=== PATIENT | female | born 1975 | race Caucasian/White ===

== ENCOUNTER 2022-01-28 12:17 | Emergency (ER) | payer BC, SELFPAY ==
[2022-01-28 12:20] VITALS: BP 155/73; PULSE 82; RESP 16; TEMP 36.5; O2SAT 100
--- NOTE | 2022-01-28 12:49 | ED.BACK ---
HPI - Back Pain/Injury General Chief Complaint: Back Pain/Injury Stated Complaint: back pain Time Seen by Provider: 01/28/22 12:23 Source: patient, family and RN notes reviewed Mode of arrival: ambulatory Limitations: no limitations History of Present Illness HPI Narrative: 46-year-old female history of degenerative disc disease presenting the emergency department for evaluation of left lower back and left buttock pain that radiates down her left hip. Patient states yesterday she woke up in the morning and was having the pain. Patient denies any falls or injuries. Patient denies any numbness weakness. Patient denies any perennial numbness when wiping. Patient denies any loss of bowel or bladder control. Patient does have history of degenerative disease patient denies any prior surgical history. Patient did take Aleve without improvement and did take an old [place] which she had leftover from a dental procedure, this did not provide significant relief. Additionally patient requested follow-up with orthopedics. She feels that her primary care physician has not been addressing her chronic back pain sufficiently. Related Data Allergies Allergy/AdvReac Type Severity Reaction Status Date / Time No Known Allergies Allergy Verified 01/28/22 12:51 Review of Systems Review of Systems: CONSTITUTIONAL: Denies fever, chills, or sweats. EYES: Denies visual changes, redness, or discharge. CARDIOVASCULAR: Denies chest pain, palpitations, or edema. RESPIRATORY: Denies cough or dyspnea. GASTROINTESTINAL: Denies abdominal pain, nausea, vomiting, or diarrhea. GENITOURINARY: Denies dysuria or hematuria. SKIN: Denies rash or itching. MUSCULOSKELETAL: See HPI NEUROLOGIC: Denies headache, numbness, or weakness. Exam Narrative: APPEARANCE: Well appearing, no pain, no distress, well-nourished. HEAD: normocephalic, atraumatic. EYES: PERRLA/EOMI, conjunctivae clear. RESPIRATORY: Airway patent, respirations nonlabored. Clear to auscultation bilaterally, no rales, rhonchi, wheezing. CARDIOVASCULAR: Regular rate and rhythm without murmurs rubs or gallops. ABDOMINAL: Soft, nontender, nondistended, normal bowel sounds MUSCULOSKELETAL: Moves all extremities. Strength/ROM intact, No edema, No calf tenderness. Lower back and left buttock tenderness to palpation. NEURO: Alert. Cranial nerves II through XII intact. Fully intact. SKIN: Warm, dry. Normal Color Course Course Emergency Course: Exam is consistent with sciatica. Patient was updated on the treatment plan. Reasons to return to the emergency department were discussed. Vital Signs Vital signs: Vital Signs Temperature 97.7 F 01/28/22 12:20 Pulse Rate 82 01/28/22 12:20 Respiratory Rate 16 01/28/22 12:20 Blood Pressure 155/73 H 01/28/22 12:20 Pulse Oximetry 100 01/28/22 12:20 Temperature 97.7 F 01/28/22 12:20 Pulse Rate 82 01/28/22 12:20 Respiratory Rate 16 01/28/22 12:20 Blood Pressure 155/73 H 01/28/22 12:20 Pulse Oximetry 100 01/28/22 12:20 MDM - Back Pain/Injury Differential Diagnosis Differential diagnosis: Likely lumbar radiculopathy, sciatica and strain of lumbar region Discharge Plan Discharge Clinical Impression: Sciatica Qualifiers: Laterality: left Qualified Code(s): M54.32 - Sciatica, left side Patient Disposition: Home, Self-Care Condition: Stable Instructions: Antibiotic Form, Sciatica (ED) Additional Instructions: Aleve scheduled for back pain for the next 3 to 5 days. Flexeril as needed for muscle spasm. [place] as needed for additional pain. Have close follow-up with your primary care physician. Orthopedics is also being provided for follow-up. If you have any worsening symptoms or if you have any questions or concerns and please call or return to the emergency department Prescriptions: New cyclobenzaprine 10 mg tablet 10 mg PO BID PRN (Reason: muscle spasm) Qty: 14 RF: 0 hydrocodone-acetaminophen 5-325 mg tablet
[2022-01-28] MEDS: HYDROcodone/acetaminophen (*CRX) 5-325 MG TABLET 1 TAB PO (12:54)
[2022-01-28] MEDS: CYCLOBENZAPRINE HCL 10 MG TABLET PO (12:59)
== END 2022-01-28 13:01 | disposition home or self-care (01) ==
PROVIDERS: Emergency Provider Emergency Medicine
DX: M54.42 Lumbago with sciatica, left side (principal)
CPT/HCPCS: 99283; A9270